=== PATIENT | male | born 1935 | race African-American/Black ===

== ENCOUNTER 2019-02-18 11:26 | Emergency (ER) | payer MEDICARE, MEDICAID ==
--- NOTE | 2019-02-18 12:16 | RAD ---
Portable frontal chest radiograph: 02/18/2019 COMPARISON: 09/21/2014 HISTORY: Unresponsive, shortness of breath FINDINGS: New dense opacity within both lung bases noted with obscuration of bilateral hemidiaphragms and blunting of bilateral costophrenic angles. No pneumothorax. Atherosclerotic calcification of the aortic arch noted. IMPRESSION: Dense bibasilar opacities suggest nonspecific bilateral pulmonary parenchymal opacity and pleural effusions. Pulmonary edema is favored. Bibasilar infectious pneumonitis is a possibility. Follow-up imaging following treatment to document resolution advised.
[2019-02-18 12:20] LABS: #Basophils 0.1 thou/uL (0.0-0.2); #Lymphocytes 2.1 thou/uL (1.20-3.40); #Monocytes 0.4 thou/uL (0.11-0.59); #Neutrophils 2.9 thou/uL (1.40-6.50); %Basophils 1.2 % (0.0-1.0); %Eosinophils 0.1 % (0.0-10.0); %Lymphocytes 38.5 % (21.0-51.0); %Monocytes 6.8 % (0.0-10.0); %Neutrophils 53.4 % (42.0-75.0); Hemoglobin 12.7 g/dL (14.0-18.0); Mean Corpuscular HGB CONC 32.1 g/dL (32.0-36.0); Mean Corpuscular Hemoglobin 30.2 pg (27.0-31.0); Mean Corpuscular Volume 93.9 fL (78.0-98.0); Mean Platelet Volume 11.8 fL (7.4-10.4); Platelet Count 145 thou/uL (130-400); RBC Distribution Width 17.7 % (11.5-14.5); Red Blood Cell (RBC) Count 4.21 mill/uL (4.70-6.10); White Blood Cell (WBC) Count 5.4 thou/uL (4.8-10.8)
[2019-02-18] MEDS ORDERED: Diltiazem 125 MG/25 ML ONE (12:32)
[2019-02-18 12:34] LABS: ALT (SGPT) 9 U/L (8-55); AST (SGOT) 28 U/L (5-34); Albumin 2.5 g/dL (3.4-4.8); Alkaline Phosphatase 83 U/L (40-150); Anion Gap 19 mmol/L (10-20); BUN (Urea Nitrogen) 23 mg/dL (8.4-25.7); Bilirubin, Total 1.3 mg/dL (0.2-1.2); Calc. Creatinine Clearance 0 mL/min (70-130); Calcium 7.7 mg/dL (7.8-10.44); Carbon Dioxide 21 mmol/L (23-31); Chloride 98 mmol/L (98-107); Estimated GFR-MDRD 40; Globulin 3.4 g/dL (2.4-3.5); Glucose 111 mg/dL (83-110); Potassium 3.7 mmol/L (3.5-5.1); Protein, Total 5.9 g/dL (5.8-8.1); Sodium 134 mmol/L (136-145)
[2019-02-18 12:53] LABS: CKMB 2.1 ng/mL (0-6.6)
[2019-02-18] MEDS ORDERED: Aspirin Chewable 81 MG TAB ONE (13:01)
[2019-02-18] MEDS ORDERED: Sodium Chloride 0.9% 500 ML ONE (13:07)
[2019-02-18] MEDS ORDERED: Enoxaparin Sodium 80 MG/0.8 ML SYRINGE ONE (13:14)
== END 2019-02-18 14:15 | disposition short-term general hospital (02) ==
LOC: NAV ERS 11:26
DX: I48.91 Unspecified atrial fibrillation (principal); I10 Essential (primary) hypertension; Z79.82 Long term (current) use of aspirin; Z79.899 Other long term (current) drug therapy
CPT/HCPCS: 71045; 80053; 82553; 83880; 84484; 85025; 93005; 96365; 96366; 96372; J1650; J7050